=== PATIENT | female | born 1975 | race Caucasian/White ===

== ENCOUNTER 2017-02-13 20:19 | Emergency (ER) | payer BC ==
[2017-02-13] MEDS ORDERED: Ketorolac Tromethamine 30 MG/ML VIAL ONE (20:27)
[2017-02-13 20:43] LABS: #Basophils 0.1 thou/uL (0.0-0.2); #Eosinphils 0.3 thou/uL (0.0-0.7); #Lymphocytes 2.6 thou/uL (1.20-3.40); #Monocytes 0.5 thou/uL (0.11-0.59); #Neutrophils 9.2 thou/uL (1.40-6.50); %Basophils 0.8 % (0.0-1.0); %Eosinophils 2.3 % (0.0-10.0); %Lymphocytes 20.1 % (21.0-51.0); %Monocytes 4.3 % (0.0-10.0); Hematocrit 39.9 % (36.0-47.0); Mean Platelet Volume 7.6 fL (7.4-10.4); Red Blood Cell (RBC) Count 4.64 mill/uL (4.20-5.40); White Blood Cell (WBC) Count 12.7 thou/uL (4.8-10.8)
[2017-02-13 20:51] LABS: Anion Gap 15 mmol/L (10-20); BUN (Urea Nitrogen) 11 mg/dL (7.0-18.7); Calc. Creatinine Clearance 0 mL/min (70-130); Calcium 9.9 mg/dL (7.8-10.44); Carbon Dioxide 25 mmol/L (22-29); Chloride 104 mmol/L (98-107); Estimated GFR-MDRD Greater than 90
[2017-02-13 21:26] LABS: Bilirubin Negative (Negative); Blood, Urine Small (Negative); Glucose, Urine (Dipstick) Negative (Negative); Ketone, Urine Negative (Negative); Nitrite Negative (Negative); Protein, Urine (Dipstick) 30 mg/dL (Neg-Trace)
[2017-02-13 21:31] LABS: Bacteria/HPF 2+ HPF (None Seen)
--- NOTE | 2017-02-13 21:48 | CT ---
ABDOMEN AND PELVIC CT NONCONTRAST: Comparison: 09-28-15 Indication: Abdominal pain. FINDINGS: No evidence of urolithiasis or obstructive uropathy. No free air or ascites. Solid abdominal organs, bowel and vasculature are limited in assessment by noncontrast CT imaging. Imaged lung bases are cl ear. The regional osseous structures are intact. IMPRESSION: 1. No evidence of urolithiasis or obstructive uropathy. 2. Incidental note of left adnexal hypodensity, approximately 2.5 cm, smaller when compared to 6 CT examination. On a non-emergent basis, follow up pelvic ultrasound may prove useful to further c haracterize. POS: L[facility]
== END 2017-02-13 21:58 | disposition home or self-care (01) ==
LOC: SCSER 20:19
DX: N39.0 Urinary tract infection, site not specified (principal); E11.9 Type 2 diabetes mellitus without complications; E03.9 Hypothyroidism, unspecified; I10 Essential (primary) hypertension; Z79.899 Other long term (current) drug therapy
CPT/HCPCS: 74176; 80048; 81003; 81015; 82805; 85025; 87077; 87086; 87186; 96361; 96374; J1885